=== PATIENT | male | born 2000 | race Caucasian/White ===

== ENCOUNTER 2025-10-21 12:53 | Emergency (ER) | payer OTHER ==
[~2025-10-21] VITALS: Ht 172.7 cm; Wt 68.0 kg
[2025-10-21 13:00] VITALS: O2SAT 98
[2025-10-21 13:41] LABS: BASOPHILS % 0.7 % (0.0-2.0); EOSINOPHILS % 0.6 % (0.0-5.0); HEMATOCRIT. 39.5 % (42.0-52.0); HEMOGLOBIN. 13.4 g/dL (14.0-18.0); LYMPHOCYTES % 11.8 % (20.0-50.0); MEAN PLATELET VOLUME 8.6 fl (7.4-10.4); MONOCYTES % 5.8 % (2.0-8.0); NEUTROPHILS % 81.1 % (40.0-76.0); PLATELET 374 x1000/uL (130-400); RED BLOOD CELL COUNT 4.29 mill/uL (4.7-6.1); RED CELL DISTRIBUTION WIDTH 14.4 % (11.6-14.6)
[2025-10-21 13:42] LABS: CLARITY URINE CLEAR (CLEAR); COLOR URINE YELLOW (YELLOW); GLUCOSE URINE 3+ (NEGATIVE); KETONES URINE TRACE (NEGATIVE); LEUKOCYTE ESTERASE URINE NEGATIVE (NEGATIVE); NITRITE URINE NEGATIVE (NEGATIVE); OCCULT BLOOD URINE NEGATIVE (NEGATIVE); PH URINE 8.0 (4.5-8.0); PROTEIN URINE NEGATIVE (NEGATIVE); SPECIFIC GRAVITY URINE 1.032 (1.005-1.030); UROBILINOGEN URINE 0.2 E.U./dL (0.2-1.0)
[2025-10-21] MEDS: SODIUM CHLORIDE 0.9% 1,000 ML IV ONE ×2 (13:47→15:07)
[2025-10-21 13:52] LABS: CREATININE 1.0 mg/dL (0.6-1.3); UREA NITROGEN BLOOD 20 mg/dL (9-23)
[2025-10-21 13:53] LABS: PROTEIN TOTAL 6.3 g/dL (6.0-8.3)
[2025-10-21 13:54] LABS: ASPARTATE AMINOTRANSFERASE 37 IU/L (<34); BILIRUBIN DIRECT < 0.1 mg/dL (<=3.0); BILIRUBIN TOTAL 0.2 mg/dL (0.1-1.0)
[2025-10-21 14:11] LABS: BACTERIA URINE NONE SEEN; RBC URINE NONE SEEN /hpf (0-2); SQUAMOUS EPITHELIAL CELL URINE NONE SEEN /lpf (RARE/1+); WBC URINE 0-2 /hpf (0-2)
[2025-10-21] MEDS: INSULIN LISPRO 100 UNITS/ML SUBCUT STA (15:07)
[2025-10-21 15:52] VITALS: BP 120/66; PULSE 84; RESP 16; TEMP 36.7; O2SAT 100
== END 2025-10-21 15:55 | disposition home or self-care (01) ==
LOC: ER 12:53
DX: E11.65 Type 2 diabetes mellitus with hyperglycemia (principal); F17.200 Nicotine dependence, unspecified, uncomplicated; F12.90 Cannabis use, unspecified, uncomplicated; F15.90 Other stimulant use, unspecified, uncomplicated
CPT/HCPCS: 99283; 96360; 96361; 80076; 80048; 81003; 82962; 83690; 83735; 85025; 36415; 96372; J7030; J1815